=== PATIENT | female | born 1985 | race Caucasian/White ===

== ENCOUNTER → 2023-12-31 | Emergency (ER) | payer MEDICAID ==
[~2023-12-31] VITALS: Ht 160 cm; Wt 68.0 kg
[~2023-12-31] MED LIST: CEPH500T PO; CEPHALEXIN MONOHYDRATE 500 MG CAPSULE PO ONE; PHEN-705 PO
[2023-12-31 06:48] LABS: APPEARANCE,URINE TURBID (CLEAR); BILIRUBIN,URINE 1+ (NEGATIVE); BLOOD, URINE 3+ Ery/uL (NEGATIVE); COLOR,URINE DARK YELLOW (YELLOW); KETONES,URINE 1+ mg/dL (NEGATIVE); LEUKOCYTE ESTERASE ,URINE 2+ (NEGATIVE); NITRITE, URINE POSITIVE (NEGATIVE); PROTEIN,URINE 2+ mg/dl (NEGATIVE); UGLUCOSE NEGATIVE (NEGATIVE); UROBILINOGEN,URINE 0.2 EU/dL (0.2)
[2023-12-31 06:51] LABS: PREGNANCY TEST URINE QUAL NEGATIVE (NEGATIVE)
[2023-12-31] MEDS: CEPHALEXIN MONOHYDRATE 500 MG CAPSULE PO ONE (07:12)
[2023-12-31 07:53] LABS: ADD URINE CULTURE YES; BACTERIA,URINE Moderate /HPF (None Seen); RBC,URINE 21-50 /HPF (0-2); SQUAMOUS EPITHELIAL CELL,UR Rare /HPF (None Seen); WBC,URINE 51-80 /HPF (0-3)
[2023-12-31 08:09] VITALS: BP 127/72; TEMP 98.1; O2SAT 98
== END | disposition home or self-care (01) ==
LOC: ER 04:36
DX: N39.0 Urinary tract infection, site not specified (principal); Z60.2 Problems related to living alone
CPT/HCPCS: 81001; 84703-TC; 87086-TC

== ENCOUNTER → 2024-03-02 | Emergency (ER) | payer MEDICAID, OTHER ==
[~2024-03-02] VITALS: Ht 160 cm; Wt 59.4 kg
[~2024-03-02] MED LIST changes: +AMOX-430 PO; -CEPHALEXIN MONOHYDRATE 500 MG CAPSULE PO ONE; +IBUPROFEN 400 MG TABLET ONE; +LIDOCAINE 1%-EPI 1:100,000 20 ML VIAL ONE; +TDAP [DIPH/PERTUSSIS/TET] 0.5 ML VIAL IM ONE
[2024-03-02] MEDS: LIDOCAINE 1%-EPI 1:100,000 50 ML VIAL IJ ONE (11:00)
[2024-03-02] MEDS: IBUPROFEN 400 MG TABLET PO ONE (11:00)
[2024-03-02] MEDS: TDAP [DIPH/PERTUSSIS/TET] 0.5 ML VIAL IM ONE (11:00)
[2024-03-02] MEDS: AMOX/CLAVULANATE 875 MG TABLET PO ONE (11:00)
[2024-03-02 12:22] VITALS: BP 131/78; TEMP 98.1; O2SAT 100
== END | disposition home or self-care (01) ==
LOC: ER 10:39
DX: S71.111A Laceration without foreign body, right thigh, initial encounter (principal); Z60.2 Problems related to living alone; W54.0XXA Bitten by dog, initial encounter; Y93.89 Activity, other specified; Y92.89 Other specified places as the place of occurrence of the external cause; Y99.8 Other external cause status
CPT/HCPCS: 12001; 90471; 90715; 99283; J3490

== ENCOUNTER 2024-03-09 20:49 | Emergency (ER) | payer OTHER ==
[~2024-03-09] VITALS: Ht 160 cm; Wt 59.0 kg
[~2024-03-09 20:49] MED LIST changes: -IBUPROFEN 400 MG TABLET ONE; -LIDOCAINE 1%-EPI 1:100,000 20 ML VIAL ONE; -TDAP [DIPH/PERTUSSIS/TET] 0.5 ML VIAL IM ONE
[2024-03-09 21:31] LABS: BASOPHILS % (AUTO) 0.8 % (0.0-2.0); EOSINOPHILS % (AUTO) 0.5 % (0.0-6.0); HEMATOCRIT 35 % (33-45); HEMOGLOBIN 11.6 g/dL (11.5-14.8); MEAN CORPUSCULAR HEMOGLOBIN 28 PG (26.0-33.0); MEAN CORPUSCULAR HGB CONC 33 g/dl (31.0-36.0); MEAN CORPUSCULAR VOLUME 83 fL (82-100); MONOCYTES # (AUTO) 0.5 K/uL (0.1-1.30); MONOCYTES % (AUTO) 11.2 % (2.0-12.0); NEUTROPHILS % (AUTO) 43.5 % (43.0-81.0); PLATELET COUNT (AUTO) 261 K/uL (150-450); RED BLOOD CELL COUNT(AUTO) 4.21 MIL/uL (4.0-5.2); RED CELL DISTRIBUTION WIDTH 15.3 % (11.5-15.0); WHITE BLOOD COUNT (AUTO) 4.6 K/uL (4.3-11.0)
[2024-03-09] MEDS ORDERED: DOXY100C2 PO (21:39)
[2024-03-09] MEDS ORDERED: CEPH-570 PO (21:39)
[2024-03-09 21:44] VITALS: BP 127/68; TEMP 98.1; O2SAT 98
[2024-03-09 21:47] LABS: CALCIUM, SERUM 8.4 mg/dL (8.5-10.1); CREATININE 0.9 mg/dL (0.6-1.3); POTASSIUM 3.5 mmol/L (3.5-5.1)
== END 2024-03-09 21:52 | disposition home or self-care (01) ==
LOC: ER 20:56
DX: S70.371D Other superficial bite of right thigh, subsequent encounter (principal); L03.115 Cellulitis of right lower limb; Z48.00 Encounter for change or removal of nonsurgical wound dressing; Z60.2 Problems related to living alone; W54.0XXD Bitten by dog, subsequent encounter
CPT/HCPCS: 36415; 80048-TC; 85025-TC